=== PATIENT | female | born 1990 | race Native Hawaiian/Other Pacific Islander ===

== ENCOUNTER 2016-11-19 16:33 | Inpatient (IN) | payer OTHER ==
[~2016-11-19] VITALS: Ht 175.3 cm; Wt 141.1 kg
[2016-11-19] MEDS ORDERED: PRENATAL LOW IR1 TA1 PO (17:02)
[2016-11-19] MEDS ORDERED: ASPIR 8181 M1 PO (17:04)
[2016-11-19] MEDS ORDERED: OXYTOCIN 20 UNITS/LR PREMIX 1,000 ML IV SCH (17:04)
[2016-11-19] MEDS ORDERED: LACTATED RINGERS 1,000 ML IV SCH (17:04)
[2016-11-19] MEDS ORDERED: METHYLERGONOVINE 0.2 MG/ML AMP IM PRN (17:05)
[2016-11-19] MEDS ORDERED: CARBOPROST 250 MCG/ML AMP IM PRN (17:05)
[2016-11-19] MEDS ORDERED: PROMETHAZINE 25 MG/ML VIAL IVP PRN (17:05)
[2016-11-19] MEDS ORDERED: NALBUPHINE 10 MG/ML AMP IVP PRN (17:05)
[2016-11-19] MEDS ORDERED: OXYTOCIN 10 UNITS/ML VIAL IM SCH ×2 (18:00→20:00)
[2016-11-19] MEDS ORDERED: OXYTOCIN 20 UNITS/LR PREMIX 1,000 ML IV ONE (19:50)
[2016-11-19] MEDS ORDERED: OXYTOCIN 10 UNITS/ML VIAL ONE (22:14)
[2016-11-20] MEDS ORDERED: WITCH HAZEL 40 PAD PACKAGE TP PRN (01:00)
[2016-11-20] MEDS ORDERED: METHYLERGONOVINE 0.2 MG/ML AMP IM PRN (01:00)
[2016-11-20] MEDS ORDERED: IBUPROFEN 800 MG TAB PO PRN (01:00)
[2016-11-20] MEDS ORDERED: TEMAZEPAM 15 MG CAP PO PRN (01:00)
[2016-11-20] MEDS ORDERED: OXYTOCIN 10 UNITS/ML VIAL IM PRN (01:00)
[2016-11-20] MEDS ORDERED: HYDROcodone/APAP 5/325 MG 1 TAB TAB PO PRN (01:00)
[2016-11-20] MEDS ORDERED: MEASLES, MUMPS, AND RUBELLA 1 VIAL SQVAC PRN (01:00)
[2016-11-20] MEDS ORDERED: BENZOCAINE/MENTHOL 20%-0.5% 60 GM CAN TP PRN (01:00)
[2016-11-20] MEDS ORDERED: oxyCODONE/APAP 5/325 MG 1 TAB TAB PO PRN (01:00)
[2016-11-20] MEDS: LACTATED RINGERS 1,000 ML IV SCH ×2 (01:19→02:26)
[2016-11-20] MEDS ORDERED: ROPIVACAINE 0.2%/NS PREMIX 250 ML EPI ONE (01:24)
[2016-11-20] MEDS ORDERED: ROPIVACAINE 0.2%/NS PREMIX 250 ML EPI SCH (02:40)
[2016-11-20] MEDS ORDERED: AMPICILLIN 2,000 MG VIAL ONE (04:40)
[2016-11-20] MEDS ORDERED: METHYLERGONOVINE 0.2 MG/ML AMP IM ONE (06:15)
[2016-11-20] MEDS ORDERED: METHYLERGONOVINE 0.2 MG/ML AMP ONE (06:16)
--- NOTE | 2016-11-20 08:15 | NUR ---
PATIENT HAS BEEN SCREENED AND CATEGORIZED LOW NUTRITION RISK. PATIENT WILL BE SEEN WITHIN 7 DAYS OF ADMISSION. 11/26/[address]
[2016-11-20] MEDS ORDERED: DOCUSATE SOD/SENNA 50/8.6 MG 1 TAB PO SCH (21:00)
[2016-11-21] MEDS ORDERED: MOTRIN600 MG PO (11:14)
== END 2016-11-21 15:05 | disposition home or self-care (01) | DRG 560 ==
LOC: MLD 16:33 → MFCC 11-20 08:15
PROVIDERS: ADMIT Obstetrics & Gynecology; ATTEND Obstetrics & Gynecology
PROC: 10E0XZZ Delivery of Products of Conception, External Approach (ICD-10-PCS; principal; 2016-11-20)
PROC: 3E033VJ Introduction of Other Hormone into Peripheral Vein, Percutaneous Approach (ICD-10-PCS; 2016-11-20)
PROC: 3E0S3CZ (ICD-10-PCS; 2016-11-20)
PROC: 00HU33Z Insertion of Infusion Device into Spinal Canal, Percutaneous Approach (ICD-10-PCS; 2016-11-20)
PROC: 10907ZC Drainage of Amniotic Fluid, Therapeutic from Products of Conception, Via Natural or Artificial Opening (ICD-10-PCS; 2016-11-20)
PROC: 3E0234Z Introduction of Serum, Toxoid and Vaccine into Muscle, Percutaneous Approach (ICD-10-PCS; 2016-11-20)
DX: O69.1XX0 Labor and delivery complicated by cord around neck, with compression, not applicable or unspecified (principal); Z68.42 Body mass index [BMI] 45.0-49.9, adult; O24.420 Gestational diabetes mellitus in childbirth, diet controlled; O99.214 Obesity complicating childbirth; E66.9 Obesity, unspecified; Z23 Encounter for immunization; Z37.0 Single live birth; Z3A.39 39 weeks gestation of pregnancy

== ENCOUNTER 2021-05-28 11:26 | Inpatient (IN) | payer OTHER, SELFPAY ==
[~2021-05-28] VITALS: Ht 175.3 cm; Wt 154.2 kg
[~2021-05-28 11:26] MED LIST: ASPI81EC98 PO; IBUP-2213 PO
[2021-05-28] MEDS ORDERED: PNV91TAB8 PO (11:42)
[2021-05-28 12:29] VITALS: BP 115/64
[2021-05-28 13:38] LABS: APPEARANCE,URINE CLEAR (CLEAR); BILIRUBIN,URINE NEGATIVE (NEGATIVE); BLOOD, URINE TRACE-I (NEGATIVE); COLOR,URINE YELLOW (YELLOW); LEUKOCYTE ESTERASE ,URINE 3+ (NEGATIVE); NITRITE, URINE NEGATIVE (NEGATIVE); UGLUCOSE NEGATIVE (NEGATIVE)
[2021-05-28 13:47] LABS: BASOPHILS % (AUTO) 0.4 % (0.0-2.0); EOSINOPHILS # (AUTO) 0.1 K/uL (0-0.4); EOSINOPHILS % (AUTO) 0.9 % (0.0-4.0); HEMATOCRIT 35.2 % (36-48); HEMOGLOBIN 11.5 g/dL (12.0-16.0); LYMPHOCYTES # (AUTO) 1.6 K/uL (2.5-16.5); LYMPHOCYTES % (AUTO) 16.6 % (20.5-51.1); MEAN CORPUSCULAR HEMOGLOBIN 28 pg (27-31); MEAN CORPUSCULAR HGB CONC 33 g/dL (33-37); MEAN CORPUSCULAR VOLUME 84.7 fL (80-94); MONOCYTES # (AUTO) 0.7 K/uL (0.8-1.0); MONOCYTES % (AUTO) 7.8 % (1.7-9.3); NEUTROPHILS % (AUTO) 74.3 % (42.2-75.2); PLATELET COUNT (AUTO) 219 K/uL (140-450); RED BLOOD CELL COUNT(AUTO) 4.15 MIL/uL (4.20-5.40); WHITE BLOOD COUNT (AUTO) 9.4 K/uL (4.8-10.8)
[2021-05-28 13:57] LABS: PROTHROMBIN TIME 9.2 secs (10.8-13.4)
[2021-05-28 13:58] LABS: WBC,URINE 80-100 /HPF (0-5)
[2021-05-28 13:59] LABS: URINE TOTAL PROTEIN 47.8 mg/dL (0-12)
[2021-05-28 14:00] LABS: ALBUMIN 2.3 g/dL (3.4-5.0); ANION GAP 12.6 (8-16); CARBON DIOXIDE 26.7 mmol/L (21-32); CREATININE 0.7 mg/dL (0.6-1.3); POTASSIUM 4.3 mmol/L (3.5-5.1); TOTAL BILIRUBIN 0.2 mg/dL (0.0-1.0); URIC ACID 5.1 mg/dL (2.6-7.2)
[2021-05-28] MEDS: LACTATED RINGERS 1,000 ML IV SCH ×2 (14:29→21:47)
[2021-05-28] MEDS ORDERED: CLINDAMYCIN 900 MG in DEXTROSE 5% 100 ML IV SCH (15:00)
[2021-05-28] MEDS: CALCIUM CARBONATE 500 MG TAB.CHEW PO SCH (15:20)
[2021-05-28] MEDS ORDERED: CARBOPROST 250 MCG/ML AMP IM PRN (15:30)
[2021-05-28] MEDS ORDERED: OXYTOCIN 10 UNITS/ML VIAL IM SCH (15:30)
[2021-05-28] MEDS ORDERED: METHYLERGONOVINE 0.2 MG/ML AMP IM PRN (15:30)
[2021-05-28] MEDS ORDERED: MISOPROSTOL 25 MCG TAB VG SCH (15:30)
[2021-05-28] MEDS ORDERED: VANCOMYCIN PER PHARMACY MC PRN (17:45)
[2021-05-28] MEDS: MISOPROSTOL 25 MCG TAB VG SCH (18:50)
[2021-05-28] MEDS ORDERED: VANCOMYCIN 2,000 MG in DEXTROSE 5% 500 ML IV SCH (19:00)
[2021-05-29] MEDS: CALCIUM CARBONATE 500 MG TAB.CHEW PO SCH ×3 (00:10→03:53)
[2021-05-29] MEDS: MISOPROSTOL 25 MCG TAB VG SCH ×2 (00:51→06:47)
[2021-05-29 06:10] LABS: ANION GAP 15.2 (8-16); CARBON DIOXIDE 22.7 mmol/L (21-32); CREATININE 0.6 mg/dL (0.6-1.3); POTASSIUM 3.9 mmol/L (3.5-5.1)
[2021-05-29] MEDS: PANTOPRAZOLE 40 MG TABEC PO SCH (08:52)
--- NOTE | 2021-05-29 09:02 | NUR ---
PATIENT HAS BEEN SCREENED AND CATEGORIZED LOW NUTRITION RISK. PATIENT WILL BE SEEN WITHIN 7 DAYS OF ADMISSION. 06/04/[address]
[2021-05-29] MEDS ORDERED: OXYTOCIN 20 UNITS/LR PREMIX 1,000 ML IV ONE (17:33)
[2021-05-29] MEDS ORDERED: OXYTOCIN 20 UNITS in LACTATED RINGERS 1,000 ML IV SCH (17:45)
[2021-05-29] MEDS ORDERED: ROPIVACAINE 0.2%/NS PREMIX 200 ML EPI ONE (21:33)
[2021-05-29] MEDS ORDERED: VANCOMYCIN 2,000 MG in DEXTROSE 5% 500 ML IV SCH (22:00)
[2021-05-29] MEDS ORDERED: ROPIVACAINE 0.2%/NS PREMIX 100 ML EPI SCH (22:00)
[2021-05-29] MEDS ORDERED: LIDOCAINE MPF 1% 10 MG/ML VIAL INJ SCH (22:45)
[2021-05-29] MEDS ORDERED: LIDOCAINE 1% 500 MG/50 ML VIAL ONE (23:11)
[2021-05-29] MEDS ORDERED: ONDANSETRON 4 MG/2 ML VIAL IVP PRN (23:55)
[2021-05-30] MEDS ORDERED: ZOLPIDEM 5 MG TAB ONE (00:30)
[2021-05-30] MEDS: LACTATED RINGERS 1,000 ML IV SCH (04:04)
[2021-05-30 06:16] LABS: CARBON DIOXIDE 24.4 mmol/L (21-32); CREATININE 0.8 mg/dL (0.6-1.3); POTASSIUM 4.4 mmol/L (3.5-5.1)
[2021-05-30] MEDS ORDERED: OXYTOCIN 20 UNITS/LR PREMIX 1,000 ML IV ONE (07:08)
[2021-05-30] MEDS ORDERED: IBUPROFEN 800 MG TAB PO PRN (08:50)
[2021-05-30] MEDS ORDERED: BENZOCAINE/MENTHOL 20%-0.5% 60 GM CAN TP PRN (08:50)
[2021-05-30] MEDS ORDERED: OXYTOCIN 10 UNITS/ML VIAL IM PRN (08:50)
[2021-05-30] MEDS ORDERED: MEASLES, MUMPS, AND RUBELLA 1 VIAL SQVAC ONE (08:50)
[2021-05-30] MEDS ORDERED: METHYLERGONOVINE 0.2 MG TAB PO PRN (08:50)
[2021-05-30] MEDS ORDERED: METHYLERGONOVINE 0.2 MG/ML AMP IM PRN (08:50)
[2021-05-30] MEDS: PANTOPRAZOLE 40 MG TABEC PO SCH (08:52)
[2021-05-30] MEDS ORDERED: IBUPROFEN 800 MG TAB ONE (08:54)
[2021-05-30] MEDS ORDERED: MEASLES, MUMPS, AND RUBELLA 1 VIAL SQVAC PRN (09:00)
[2021-05-30] MEDS ORDERED: ZOLPIDEM 5 MG TAB PO SCH (21:00)
[2021-05-30] MEDS: CALCIUM CARBONATE 500 MG TAB.CHEW PO SCH (21:00)
[2021-05-30] MEDS ORDERED: DOCUSATE SOD/SENNA 50/8.6 MG 1 TAB PO SCH (21:00)
[2021-05-31 06:38] LABS: HEMATOCRIT 32.4 % (36-48); HEMOGLOBIN 10.5 g/dL (12.0-16.0)
[2021-05-31 06:41] LABS: ANION GAP 10.4 (8-16); CARBON DIOXIDE 27.9 mmol/L (21-32); CREATININE 0.7 mg/dL (0.6-1.3); POTASSIUM 4.3 mmol/L (3.5-5.1)
[2021-05-31] MEDS: CALCIUM CARBONATE 500 MG TAB.CHEW PO SCH (08:54)
== END 2021-05-31 17:30 | disposition home or self-care (01) | DRG 560 ==
LOC: MLD 11:26 → OBSVTOIN 14:33 → MLD 14:33 → MFCC 05-30 09:15
PROVIDERS: ADMIT Obstetrics & Gynecology; ATTEND Obstetrics & Gynecology
PROC: 02HV33Z Insertion of Infusion Device into Superior Vena Cava, Percutaneous Approach (ICD-10-PCS; 2021-05-29)
PROC: B548ZZA Ultrasonography of Superior Vena Cava, Guidance (ICD-10-PCS; 2021-05-29)
PROC: 10E0XZZ Delivery of Products of Conception, External Approach (ICD-10-PCS; principal; 2021-05-30)
PROC: 3E0R3BZ Introduction of Anesthetic Agent into Spinal Canal, Percutaneous Approach (ICD-10-PCS; 2021-05-30)
PROC: 00HU33Z Insertion of Infusion Device into Spinal Canal, Percutaneous Approach (ICD-10-PCS; 2021-05-30)
PROC: 3E0DXGC Introduction of Other Therapeutic Substance into Mouth and Pharynx, External Approach (ICD-10-PCS; 2021-05-30)
PROC: 3E0P7VZ Introduction of Hormone into Female Reproductive, Via Natural or Artificial Opening (ICD-10-PCS; 2021-05-30)
DX: O76 Abnormality in fetal heart rate and rhythm complicating labor and delivery (principal); Z37.0 Single live birth; O41.03X0 Oligohydramnios, third trimester, not applicable or unspecified; O99.214 Obesity complicating childbirth; Z20.822 Contact with and (suspected) exposure to COVID-19; O14.94 Unspecified pre-eclampsia, complicating childbirth; O99.824 Streptococcus B carrier state complicating childbirth; Z3A.36 36 weeks gestation of pregnancy; Z79.82 Long term (current) use of aspirin; Z79.899 Other long term (current) drug therapy; Z88.0 Allergy status to penicillin
CPT/HCPCS: G0378 ×3; 36415; 51702; 59200; 59409; 71045; 80048; 80053; 80202; 81001; 82570; 84550; 85018; 85025; 85384; 85610; 85730; 86592; 86886; 86900; 86901; 87086; 90715; J2001; J2405; J2590; J2795; J3370; J3490; J7060; Q0092

== ENCOUNTER 2021-06-01 23:47 | Emergency (ER) | payer OTHER, SELFPAY ==
[~2021-06-01] VITALS: Ht 175.3 cm; Wt 154.2 kg
[~2021-06-01 23:47] MED LIST changes: -ASPI81EC98 PO; +PNV91TAB8 PO
[2021-06-02] VITALS: BP 151/90
--- NOTE | 2021-06-02 | NUR ---
TO BED AMBULATORY
--- NOTE | 2021-06-02 00:10 | NUR ---
31 YO F BIB SELF WITH C/C OF BILAT LEG SWELLING X2DAYS. PT WAS DC FROM UNIT YESTERDAY 9.2, PT DELIVERED 9.1. NORMAL DELIVERY. PT STATED SHE ELEVATED HER LEGS AND HEART BEGAN TO RACE, PT BECAME ANXIOUS, CALLED POSTPART, INSTRUCTED TO TAKE BP. BP WAS 140/100.BP RETAKEN HERE 155/106, INSTRUCTED TO COME TO ER. PT DENIES PAIN TO BILAT LEGS, STATED IT JUST FEELS TIGHT. LEGS ARE COOL TO TOUCH, NO DISCOLORATIONS. PT STATED SHE HAD GESTATIONAL HTN. ALLERG: JANINA
--- NOTE | 2021-06-02 00:40 | NUR ---
ERMD AT BEDSIDE.
--- NOTE | 2021-06-02 00:49 | NUR ---
PT AMBULATED TO AND BACK TO BED WITH STEADY GAIT.
[2021-06-02 00:56] VITALS: BP 141/96
--- NOTE | 2021-06-02 00:56 | NUR ---
BP RETAKE 141/96
[2021-06-02 01:43] LABS: BASOPHILS % (AUTO) 0.5 % (0.0-2.0); EOSINOPHILS # (AUTO) 0.3 K/uL (0-0.4); EOSINOPHILS % (AUTO) 3.1 % (0.0-4.0); HEMOGLOBIN 11.7 g/dL (12.0-16.0); LYMPHOCYTES # (AUTO) 2.2 K/uL (2.5-16.5); LYMPHOCYTES % (AUTO) 23.8 % (20.5-51.1); MEAN CORPUSCULAR HEMOGLOBIN 27 pg (27-31); MEAN CORPUSCULAR HGB CONC 32 g/dL (33-37); MEAN CORPUSCULAR VOLUME 84.4 fL (80-94); MONOCYTES # (AUTO) 0.6 K/uL (0.8-1.0); MONOCYTES % (AUTO) 6.2 % (1.7-9.3); NEUTROPHILS # (AUTO) 6.2 K/uL (1.8-7.7); NEUTROPHILS % (AUTO) 66.4 % (42.2-75.2); PLATELET COUNT (AUTO) 234 K/uL (140-450); RED BLOOD CELL COUNT(AUTO) 4.27 MIL/uL (4.20-5.40); RED CELL DISTRIBUTION WIDTH 15.4 % (11.6-13.7); WHITE BLOOD COUNT (AUTO) 9.4 K/uL (4.8-10.8)
[2021-06-02 02:03] LABS: ALBUMIN 2.6 g/dL (3.4-5.0); CARBON DIOXIDE 26.2 mmol/L (21-32); CREATININE 0.8 mg/dL (0.6-1.3); POTASSIUM 4.2 mmol/L (3.5-5.1); TOTAL BILIRUBIN 0.2 mg/dL (0.0-1.0)
--- NOTE | 2021-06-02 02:14 | NUR ---
PT WALKED TO [facility]IG[facility] LOZANO
[2021-06-02] MEDS ORDERED: cephALEXin 500 MG CAP PO ONE (02:15)
--- NOTE | 2021-06-02 02:45 | NUR ---
d/c with [facility]. d/c education given. opportunity to ask questions given and answered. no rx given at this time.
== END 2021-06-02 02:44 | disposition home or self-care (01) ==
LOC: MED 23:47
DX: R60.0 Localized edema (principal); E11.9 Type 2 diabetes mellitus without complications; Z88.0 Allergy status to penicillin; Z79.899 Other long term (current) drug therapy
CPT/HCPCS: 36415; 80053; 81002; 81025; 85025; 99283